=== PATIENT | female | born 1970 | race American Indian/Alaskan Native ===

== ENCOUNTER 2019-02-04 14:46 | Emergency (ER) | payer OTHER ==
[2019-02-04 15:24] VITALS: BP 126/83
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
== END 2019-02-04 17:03 | disposition home or self-care (01) ==
LOC: ED 14:46
DX: L25.9 Unspecified contact dermatitis, unspecified cause (principal); F17.200 Nicotine dependence, unspecified, uncomplicated; Z79.899 Other long term (current) drug therapy
CPT/HCPCS: 99282

== ENCOUNTER 2020-08-23 20:28 | Emergency (ER) | payer OTHER ==
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
[2020-08-23 23:11] VITALS: BP 132/76
== END 2020-08-23 23:09 | disposition home or self-care (01) ==
LOC: ED 20:28
DX: M25.512 Pain in left shoulder (principal); F17.200 Nicotine dependence, unspecified, uncomplicated; Z79.899 Other long term (current) drug therapy; V49.49XA Driver injured in collision with other motor vehicles in traffic accident, initial encounter; Y93.89 Activity, other specified; Y92.488 Other paved roadways as the place of occurrence of the external cause; Y99.8 Other external cause status
CPT/HCPCS: 99283

== ENCOUNTER 2020-11-13 12:12 | Emergency (ER) | payer SELFPAY | END 2020-11-14 00:05 | LOC: ED 12:12 | DX: Z00.8 Encounter for other general examination (principal); Z53.21 Procedure and treatment not carried out due to patient leaving prior to being seen by health care provider ==